=== PATIENT | female | born 1975 | race Caucasian/White ===

== ENCOUNTER 2021-04-20 11:10 | Outpatient (REF) | payer OTHER, SELFPAY ==
[2021-04-20 14:21] LABS: Vitamin B12 160 pg/mL (200-900)
[2021-04-20 14:30] LABS: Free T4 (Free Thyroxine) < 0.40 ng/dL (0.71-1.85); Vitamin D 25-OH Total 8.7 ng/mL (>30)
[2021-04-21 13:27] LABS: Calcium (PTHI) 9.2 mg/dL (8.6-10.2); PTHI 177 pg/mL (14-64)
== END 2021-04-20 11:11 | disposition home or self-care (01) ==
LOC: HO.10HDL 11:10
PROVIDERS: PCP Internal Medicine; Visit Provider Internal Medicine Endocrinology, Diabetes & Metabolism
DX: E89.0 Postprocedural hypothyroidism (principal); E21.1 Secondary hyperparathyroidism, not elsewhere classified; E53.8 Deficiency of other specified B group vitamins
CPT/HCPCS: 36415; 82306; 82607; 83970; 84439; 84443; 99212

== ENCOUNTER → 2022-01-23 13:51 | Outpatient (BNVA) | payer SELFPAY | PROVIDERS: PCP Internal Medicine; Visit Provider Physician Assistant Medical ==

== ENCOUNTER 2022-02-26 13:00 | Emergency (ER) | payer OTHER, SELFPAY ==
--- NOTE | ~2022-02-26 | XR_ITS ---
EXAMINATION: PORTABLE CHEST 1 VIEW CLINICAL INFORMATION: cough . COMPARISON: 04/22/2020. TECHNIQUE: Portable frontal view of the chest was obtained. FINDINGS: Lungs are hypoexpanded with asymmetric elevation of the right hemidiaphragm again noted. No focal infiltrate, effusion, edema, or pneumothorax. Cardiac and mediastinal silhouettes within normal limits for size. No focal airspace disease. XR/XR chest 1V IMPRESSION: Hypoexpanded but no acute process seen otherwise.
[2022-02-26 13:16] VITALS: BP 120/78; PULSE 116; RESP 18; TEMP 37; O2SAT 98; BMI 52.9
--- NOTE | 2022-02-26 13:34 | ED_ITS ---
HPI - General Adult General Chief complaint: Upper Respiratory Symptoms Stated complaint: Covid+/Vomiting, fever Time Seen by Provider: 02/26/22 13:19 Source: patient Mode of arrival: ambulatory Limitations: no limitations History of Present Illness HPI narrative: Patient comes emergency room complaining of COVID/flu like symptoms. Patient states she has been having cough, vomiting, cough. Patient states she tested positive for COVID yesterday at home, patient would like to be retested to make sure it is COVID. Patient states that she has been very nauseous, patient has a migraine but has not taken her medications for migraine because she is afraid that she will vomit and ran out of her medications with no relief. Patient denies chest pain, no shortness of breath, no calf pain. Related Data Previous Rx's Medication Instructions Recorded Tirosint 137 mcg capsule 137 mcg PO DAILY 30 Days #30 cap NS 04/20/21 (levothyroxine) cholecalciferol (vitamin D3) 50 50 mcg PO DAILY 30 Days #30 cap 04/20/21 mcg (2,000 unit) capsule cyanocobalamin (vitamin B-12) 500 500 mcg SUBLINGUAL DAILY 30 Days 04/20/21 mcg sublingual tablet #30 tab tizanidine 4 mg tablet 4 mg PO TID PRN #90 tab 05/19/21 ketorolac 10 mg tablet 10 mg PO QID PRN 5 Days #10 tab 02/26/22 metoclopramide HCl 5 mg tablet 5 mg PO DAILY PRN #10 tab 02/26/22 (Reglan) Allergies Allergy/AdvReac Type Severity Reaction Status Date / Time No Known Allergies Allergy Verified 04/20/21 11:28 Kiwi Allergy Unknown Unknown Uncoded 04/20/21 11:28 Shellfish Allergy Unknown Unknown Uncoded 04/20/21 11:28 Review of Systems Review of Systems: Constitutional : No Weight loss, No Fever, No Chills, No Night Sweats, complaining of fatigue and generalized malaise ENT/Mouth : No Hearing loss, No Ear Pain, no nasal congestion, no hoarseness, no sore throat Eyes: No Eye Pain, No Swelling, No Redness, No Foreign Body, No Discharge, No Vision Changes Cardiovascular : No Chest Pain, No SOB, No Dyspnea on Exertion, No Orthopnea, No Edema, No Palpitations Respiratory : No Cough, No Sputum, No Wheezing, No Smoke Exposure, No Dyspnea Gastrointestinal : Complaining of nausea and vomiting No Diarrhea, No Constipation, No abdominal Pain, No Hematochezia, No Melena Genitourinary : no irregular bleeding, No Dysuria, No Urinary Frequency, No Hematuria, No Urinary Incontinence, No Urgency, No Flank Pain, No Urinary Flow Changes, No Hesitancy Musculoskeletal : No joint pain, No Myalgias, No Joint Swelling Skin : No Skin Lesions, No rash Neuro : No Weakness, No Numbness, No Paresthesias, No Loss of Consciousness, No Dizziness, complaining of Headache Psych : No Anxiety/Panic, No Depression, No SI/HI/AH/VH, No Social Issues, Heme/Lymph: No Bruising, No Bleeding,No Lymphadenopathy Endocrine : No Polyuria, No Polydipsia, No Temperature Intolerance [facility] Past Medical History Medical History B12 deficiency Hyperparathyroidism due to vitamin D deficiency Hypothyroidism Surgical History History of incision and drainage Family History Family History (Updated 04/20/21 @ 11:15 by LOLITA Guerra) Father Glaucoma Diabetes Arthritis of knee Mother Anemia Osteoarthritis History of Laura-en-Y gastric bypass Social History Social History (Updated 04/20/21 @ 11:20 by LOLITA Guerra) Patient Tobacco Use Status: Never used Tobacco Use of substances other than those prescribed or required for medical reasons: No Advance Directives: No Advance Directives Information Provided: No Patient : No Physical Exam ED Vital Signs: Vital Signs - 24 hr 02/26/22 13:16 02/26/22 14:05 Temperature 98.6 F Pulse Rate 116 H 108 H Respiratory Rate 18 20 Blood Pressure 120/78 Pulse Oximetry 98 97 BMI result Body Mass Index 52.9 Const Other: Appearance: Alert. Oriented X3. No acute distress. Eyes: Pupils equal, round and reactive to light. ENT: Pharynx normal. Neck: Normal inspection. Neck supple. No lymph nodes noted. No crepitus CVS: Normal heart rate and rhythm. Pulses normal. Normal S1 and S2 Respiratory: No respiratory distress. Breath sounds normal. No Wheezing. No rales Abdomen: Soft and nontender. No rigidity. No distention. Skin: Skin warm and dry. Normal skin color. Normal skin turgor. Extremities: No lower extremity edema. No Lacerations. No Rash Neuro: Oriented X 3. No motor deficit. No sensory deficit. Moving all extremities. No slurred speech. CN 2 through 12 grossly intact Psych: calm, cooperative, normal affect Course Course Course Narrative: COVID test pending. Patient received p.o. Zofran and 1 dose of IM Toradol for symptomatic relief I discussed with the patient that she tested negative for COVID-19, however it may be a false negative. Patient will get retested in 2 days. Patient was given 1 dose of p.o. sumatriptan as well prior to discharge. Otherwise, patient is well-appearing, feeling overall better. Medical Decision Making Lab Data Labs: Lab Results 02/26/22 Range/Units 14:13 COVID-19 (ERIC) Negative (Negative) COVID-19 Clin Com See Note Discharge Plan Discharge Clinical Impression: Acute viral syndrome, Migraine Patient Disposition: Home, Self-Care Instructions: Migraine Headache (ED), Viral Syndrome (ED) Additional Instructions: Please follow-up with your primary care physician tomorrow. If you have any worsening or new symptoms, please return to the emergency room or call 911 Prescriptions: New ketorolac 10 mg tablet 10 mg PO QID PRN (Reason: pain) 5 Days Qty: 10 0RF Rx Instructions: Do not use naproxen or any NSAIDs, only Tylenol if needed metoclopramide HCl [Reglan] 5 mg tablet 5 mg PO DAILY PRN (Reason: nausea and vomiting) Qty: 10 0RF No Action tizanidine 4 mg tablet 4 mg PO TID PRN (Reason: for low back pain) Qty: 90 1RF levothyroxine [Tirosint] 137 mcg capsule 137 mcg PO DAILY 30 Days Qty: 30 6RF Rx Instructions: Brand medically necessary. Do not substitute. Dispense as written. cyanocobalamin (vitamin B-12) 500 mcg tablet, sublingual 500 mcg sublingual DAILY 30 Days Qty: 30 6RF cholecalciferol (vitamin D3) 50 mcg (2,000 unit) capsule 50 mcg PO DAILY 30 Days Qty: 30 6RF
[2022-02-26] MEDS: Ondansetron ODT 4 MG TAB.RAPDIS TRANSLINGU (14:02)
[2022-02-26] MEDS: Ketorolac Tromethamine 60 MG/2 ML VIAL IM (14:02)
[2022-02-26 14:05] VITALS: PULSE 108; RESP 20; O2SAT 97; O2SAT 98
[2022-02-26 14:35] LABS: COVID-19 Test Negative (Negative)
[2022-02-26] MEDS: SUMAtriptan succinate 50 MG TABLET PO (15:43)
[2022-02-26 16:08] VITALS: BP 112/77; PULSE 109; RESP 18; TEMP 37.3; O2SAT 96
== END 2022-02-26 16:21 | disposition home or self-care (01) ==
PROVIDERS: Emergency Provider Emergency Medicine; PCP Internal Medicine
DX: B34.9 Viral infection, unspecified (principal); G43.909 Migraine, unspecified, not intractable, without status migrainosus; R05.9 Cough, unspecified; Z20.822 Contact with and (suspected) exposure to COVID-19; Z79.899 Other long term (current) drug therapy
CPT/HCPCS: 71045; 87635; 96372; 99284; 99285; J1885

== ENCOUNTER 2022-06-06 11:27 | Emergency (ER) | payer OTHER, SELFPAY | END 2022-06-06 13:06 | disposition left against medical advice (07) | PROVIDERS: Emergency Provider Emergency Medicine; PCP Internal Medicine | DX: S89.91XA Unspecified injury of right lower leg, initial encounter (principal); X58.XXXA Exposure to other specified factors, initial encounter; Y93.9 Activity, unspecified; Y92.9 Unspecified place or not applicable; Y99.9 Unspecified external cause status ==

== ENCOUNTER → 2022-10-10 10:35 | Outpatient (BNVA) | payer OTHER, SELFPAY | PROVIDERS: PCP Internal Medicine; Visit Provider Internal Medicine Endocrinology, Diabetes & Metabolism | DX: E89.0 Postprocedural hypothyroidism (principal); E21.1 Secondary hyperparathyroidism, not elsewhere classified | CPT/HCPCS: 99212 ==

== ENCOUNTER 2023-01-10 18:19 | Outpatient (REF) | payer OTHER, SELFPAY ==
[2023-01-10 19:04] LABS: Influenza A PCR NEGATIVE (Negative); Influenza B PCR NEGATIVE (Negative); Resp Syncy Virus RNA Qual PCR NEGATIVE (Negative); SARS COV2 PCR INHOUSE POSITIVE (Negative)
== END 2023-01-10 18:20 | disposition home or self-care (01) ==
LOC: HO.LNP 18:19
PROVIDERS: Visit Provider Nurse Practitioner Family
DX: R09.89 Other specified symptoms and signs involving the circulatory and respiratory systems (principal); Z20.822 Contact with and (suspected) exposure to COVID-19
CPT/HCPCS: 0241U

== ENCOUNTER 2023-06-15 07:57 | Outpatient (AMB) | payer OTHER, SELFPAY ==
[2023-06-15 08:04] VITALS: BP 114/68; PULSE 97; O2SAT 99; BMI 51.9
--- NOTE | 2023-06-15 08:04 | MHC.PC.OV ---
Vital Signs 06/15/23 08:04 Height 5 ft 5 in Weight 312 lb BMI 51.9 BP 114/68 Blood Pressure Location Lt brachial Position Sitting Pulse 97 Pulse Source Pulse Oximeter Pulse Oximetry (%) 99 Oxygen Delivery Method Room Air Intake Visit Reasons: gallbladder surgery Allergies Kiwi Allergy (Unknown, Uncoded 06/15/23 08:07) Unknown Shellfish Allergy (Unknown, Uncoded 06/15/23 08:07) Unknown Tobacco use date assessed: 06/15/23 Dental Screening Dental Screen Date: 06/15/23 Did you have a dental visit in the last 12 months?: Yes Did you have a dental problem in the last 6 months where you did not have access to dental care?: No Was dental information given to patient?: Patient has dentist HPI HPI Comments History of Present Illness Details 48-year-old female past medical history significant for hypothyroidism, B12 deficiency and headaches. Patient of Dr. Lockett patient presents today for a hospital discharge follow-up 2 days upper abdominal pain went to [facility]. Patient states had pancreatitis and was admitted x 1 week then underwent cholecystectomy completed on 05/17/23. Unfortunately records of her admission were unavailable at time of her appointment. Records to be requested.Patient followed up with [facility] General surgery on 06/05. Patient states feels like ball by epigastric incision and hurts with movement or if she does anything strenous, patient does report she did notify surgeon of this however she was told to follow-up with her PCP. Palpable lump felt that epigastric incision, patient reports tender on palpation. Will order abdominal CT to rule out ventral hernia. [facility] Medical History B12 deficiency Hyperparathyroidism due to vitamin D deficiency Hypothyroidism Surgical History History of incision and drainage Family History (Updated 06/15/23 @ 08:05 by Toshia Torres CMA) Father Glaucoma Diabetes Arthritis of knee Mother Anemia Osteoarthritis History of Laura-en-Y gastric bypass Social History (Updated 10/10/22 @ 10:46 by ROSE Son) Household Members: Children Household Members Other:: daughter Housing: Apartment Alcohol intake: never Patient Tobacco Use Status: Never used Tobacco e-Cigarette/Vaping Use: Never Used Second Hand Smoke Exposure: No service: No Current occupational status: employed Current occupational exposures/hazards: No Cognitive needs: No Hearing needs: No Vision needs: Yes Questionnaire PHQ-9 Over the last 2 weeks, how often have you been bothered by any of the following problems? 1. Little interest or pleasure in doing things: more than half the days 2. Feeling down, depressed, or hopeless: more than half the days 3. Trouble falling or staying asleep, or sleeping too much: more than half the days 4. Feeling tired or having little energy: more than half the days 5. Poor appetite or overeating: several days 6. Feeling bad about yourself - or that you are a failure or have let yourself or your family down: not at all 7. Trouble concentrating on things, such as reading the newspaper or watching television: not at all 8. Moving or speaking so slowly that other people could have noticed. Or the opposite - being so fidgety or restless that you have been moving around a lot more than usual: not at all 9. Thoughts that you would be better off or of hurting yourself in some way: not at all Total score: 9 Depression Screening Interpretation: Positive Source: Developed by Drs. Narciso Gudino, Nadia Valle, Jarred Greene and colleagues, with an educational latia from [employer]. Thrive Questionnaire Date Thrive assessed: 06/15/23 I am a: Patient What is your living situation today?: I have a steady place to live Within the past 12 months, did the food you bought not last and you didn't have the money to get more?: Never true Within the past 12 months, did you worry whether your food would run out before you got money to buy more?: Never true Do you have trouble paying for medicines?: No Do you have trouble getting transportation to medical appointments?: No Do you have trouble paying your heating and electricity bill?: No Do you have trouble taking care of your child, family member or friend?: No Do you have trouble with day-to-day activities such as bathing, preparing meals, shopping, managing finances, etc.?: No Are you currently unemployed and looking for a job?: No Are you interested in more education?: No Currently or been in a relationship where the following occur: no concerns reported AUDIT C Alcohol Use Questionnaire (AUDIT-C) 1. How often do you have a drink containing alcohol?: Monthly or less 2. How many drinks containing alcohol do you have on a typical day when you are drinking?: 1 or 2 3. How often do you have six or more drinks on one occasion?: Never Total Score: 1 KAYLAH-7 AMB Questionnaire KAYLAH-7 Date KAYLAH - 7 assessed: 06/15/23 Feeling nervous, anxious, or on edge: 2 = More than half the days Not being able to stop or control worryin = More than half the days Worrying too much about different things: 2 = More than half the days Trouble relaxin = More than half the days Being so restless that it is hard to sit still: 0 = Not at all Becoming easily annoyed or irritable: 1 = Several days Feeling afraid as if something awful might happen: 2 = More than half the days Total KAYLAH-7 score (0-4 normal; 5-9 mild; 10-14 moderate; 15-21 severe): 11 Source: Developed by Drs. Narciso Gudino, Nadia Valle, Jarred Greene and colleagues, with an educational latia from [employer]. Review of Systems Const Denies chills, Denies fatigue, Denies fever(s) and Denies poor appetite Eyes Denies no additional complaints ENT Reports Normal hearing present Card Denies chest pain, Denies syncope, Denies rapid heart rate and Denies dyspnea Resp Denies cough and Denies dyspnea GI Denies change in stool character, Denies constipation, Denies diarrhea, Denies nausea and Denies vomiting Denies urinary frequency, Denies dysuria and Denies urinary urgency Neuro Reports Normal hearing present, Denies confusion and Denies syncope Psych Denies confusion Endo Denies fatigue Physical exam (Primary Care) Vital Signs: Last Vital Signs Pulse 97 06/15/23 08:04 BP 114/68 06/15/23 08:04 Pulse Ox 99 06/15/23 08:04 Oxygen Delivery Method Room Air 06/15/23 08:04 BMI result Body Mass Index 51.9 Tobacco/Smoking Status: Tobacco use Status Tobacco use date assessed 06/15/23 06/15/23 08:09 Patient Tobacco Use Status Never used Tobacco 06/15/23 08:09 e-Cigarette/Vaping Use Never Used 06/15/23 08:09 PHQ-9: PHQ-9 Score PHQ-9: Total score 9 06/15/23 08:11 Depression Screening Interpretation: Positive Thrive Assessment: Date of Thrive Assessment Date Thrive assessed 06/15/23 06/15/23 08:09 Currently or been in a relationship where the following occur: no concerns reported Const General: No confusion Orientation/consciousness: No confusion HENMT Head: Yes normocephalic and Yes atraumatic Eyes Conjunctivae: conjunctivae normal Chest Chest palpation & inspection: normal inspection of the chest Resp Effort & Inspection: normal respiratory effort Auscultation: clear to auscultation bilaterally, no crackles, no rhonchi and no wheezes Cardio Rate: regular rate Rhythm: regular rhythm Heart sounds: S1 normal heart sound present and S2 normal heart sound present GI Inspection: Yes normal to inspection Palpation (GI): Soft to palpation, nontender, No hepatosplenomegaly present and Hernia present ventral (Palpable lump to epigastric incision. ) Auscultation: normoactive bowel sounds Neuro General: No confusion Cranial nerves: Yes Normal hearing present Extrem General: No edema Assessment and Plan Assessment & Plan (1) Ventral hernia: Code(s): K43.9 - Ventral hernia without obstruction or gangrene Plan: Abdominal CT ordered to further evaluate for ventral hernia status post cholecystectomy. (2) Hypothyroidism: Code(s): E03.9 - Hypothyroidism, unspecified Qualifiers: Hypothyroidism type: postablative Qualified Code(s): E89.0 - Postprocedural hypothyroidism Plan: Continue on levothyroxine, refill sent on this medication Plan Follow-up in 6 months for physical exam or sooner if needed. Orders: Orders CT abdomen pelvis w IV con Today K43.9 - Ventral hernia without obstruction or gangrene Medications: Refilled Tirosint (levothyroxine) Brand medically necessary. Do not substitute. Dispense as written. 137 mcg PO DAILY 30 days 30 caps 6RF NS E89.0 - Postprocedural hypothyroidism cholecalciferol (vitamin D3) 50 mcg PO DAILY 30 days 30 caps 6RF E21.1 - Secondary hyperparathyroidism, not elsewhere classified tizanidine 4 mg PO TID PRN 90 tabs 0RF for low back pain Coding Level of Care Code Est Pt Level 3 (18262) Diagnoses Ventral hernia K43.9 Hypothyroidism E89.0 Hypothyroidism type: postablative
== END 2023-06-15 08:32 | disposition home or self-care (01) ==
PROVIDERS: PCP Internal Medicine; Visit Provider Nurse Practitioner Family
DX: K43.9 Ventral hernia without obstruction or gangrene (principal); E89.0 Postprocedural hypothyroidism
CPT/HCPCS: 99213

== ENCOUNTER 2023-08-16 10:40 | Outpatient (REF) | payer OTHER, SELFPAY ==
--- NOTE | ~2023-08-16 | MM_ITS ---
EXAMINATION: MM SCREENING DIGITAL BREAST TOMOSYNTHESIS, BILATERAL CLINICAL INFORMATION: Screening. Asymptomatic. COMPARISON: Mammography: This is a baseline study. TECHNIQUE: Digital breast tomosynthesis is performed in both the craniocaudal and mediolateral oblique views along with computer-aided detection (CAD). Synthesized 2D images are generated from the tomosynthesis. FINDINGS: The breasts are almost entirely fatty (ACR BI-RADS breast composition Category a). There are no significant masses, abnormal calcifications, or other abnormalities. MM/MM tomosynthesis screening BI IMPRESSION: No mammographic evidence of malignancy. ASSESSMENT: BI-RADS BI-RADS 1 - Negative RECOMMENDATION: Routine annual mammography screening. 1 year F/U This examination should not preclude the clinical evaluation of a suspicious palpable abnormality. This patient's information was entered into a reminder system with a target due date for their next mammogram.
== END 2023-08-16 10:41 | disposition home or self-care (01) ==
LOC: HO.MAMMO 10:40
PROVIDERS: PCP Physician Assistant; Visit Provider Physician Assistant
DX: Z12.31 Encounter for screening mammogram for malignant neoplasm of breast (principal)
CPT/HCPCS: 77063; 77067

== ENCOUNTER → 2023-08-16 10:45 | Outpatient (BNV) | payer OTHER, SELFPAY | PROVIDERS: PCP Physician Assistant; Visit Provider Radiology Diagnostic Radiology | DX: Z12.31 Encounter for screening mammogram for malignant neoplasm of breast (principal) | CPT/HCPCS: 77063; 77067 ==

== ENCOUNTER 2023-12-13 08:24 | Outpatient (AMB) | payer OTHER, SELFPAY ==
[2023-12-13 08:01] VITALS: BP 112/82; PULSE 85; O2SAT 97; BMI 53.4
--- NOTE | 2023-12-13 08:01 | MHC.PC.OV ---
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: No Accompanied by: Self / Same As Patient Allergies Kiwi Allergy (Unknown, Uncoded 12/13/23 08:11) Unknown Shellfish Allergy (Unknown, Uncoded 12/13/23 08:11) Unknown Medication List - Last Reconciled 12/13/23 by Michoacano Anderson PA-C cholecalciferol (vitamin D3) 50 mcg PO DAILY 30 days cyanocobalamin (vitamin B-12) 500 mcg sublingual DAILY 30 days Tirosint (levothyroxine) 137 mcg PO DAILY 30 days NS tizanidine 4 mg PO TID PRN Tobacco use date assessed: 12/13/23 Dental Screening Dental Screen Date: 12/13/23 Did you have a dental visit in the last 12 months?: No Did you have a dental problem in the last 6 months where you did not have access to dental care?: No Was dental information given to patient?: Patient has dentist HPI pe HPI Details Patient is a 48-year-old female here today for annual physical. This is the 1st time I am meeting this 48-year-old female with a past medical history significant for morbid obesity, hyperparathyroidism, hypothyroidism, B12 deficiency. She was seeing endocrinology in 2021 though has lost follow-up. Most recent TSH very elevated above 60. She does report having heart palpitations as of late, muscle cramps and numbness and tingling in her upper extremities. She does report also having edema in her lower extremities hands and periorbital regions as well. Will try to set her back up with endocrinology as she has signs and symptoms of hypothyroidism and hyperparathyroidism. .. Mammogram: Done in July 2023 BI-RADS 1 . BLOCKER HAND: Needs a BLOCKER HAND exam and Pap smear .. Colon cancer screening- willing to do colonoscopy Vaccines- up-to-date with COVID vaccine, needs tetanus, needs flu Laboratory Tests 04/20/21 12:38 TSH 67.00 H Free T4 < 0.40 L PTH Intact 177 H PFSH Medical History B12 deficiency Hyperparathyroidism due to vitamin D deficiency Hypothyroidism Surgical History History of incision and drainage Family History Father Glaucoma Diabetes Arthritis of knee Mother Anemia Osteoarthritis History of Laura-en-Y gastric bypass Social History (Updated 12/13/23 @ 08:18 by Michoacano Anderson PA-C) Household Members: Children Household Members Other:: daughter Housing: Apartment Alcohol intake: never Patient Tobacco Use Status: Never used Tobacco e-Cigarette/Vaping Use: Never Used Second Hand Smoke Exposure: No service: No Current occupational status: employed 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 1. Little interest or pleasure in doing things: several days 2. Feeling down, depressed, or hopeless: not at all 3. Trouble falling or staying asleep, or sleeping too much: more than half the days 4. Feeling tired or having little energy: nearly every day 5. Poor appetite or overeating: several days 6. Feeling bad about yourself - or that you are a failure or have let yourself or your family down: not at all 7. Trouble concentrating on things, such as reading the newspaper or watching television: not at all 8. Moving or speaking so slowly that other people could have noticed. Or the opposite - being so fidgety or restless that you have been moving around a lot more than usual: not at all 9. Thoughts that you would be better off or of hurting yourself in some way: not at all Total score: 7 Depression Screening Interpretation: Positive Depression Screening Follow-up: Existing condition and Follow-up Visit Requested Depression Screening Done: Yes 38316 - PHQ-9 Billing: Yes Source: Developed by Drs. Narciso Gudino, Nadia Valle, Jarred Greene and colleagues, with an educational latia from [employer]. Thrive Questionnaire Date Thrive assessed: 12/13/23 I am a: Patient What is your living situation today?: I have a steady place to live Within the past 12 months, did the food you bought not last and you didn't have the money to get more?: Never true Within the past 12 months, did you worry whether your food would run out before you got money to buy more?: Never true Do you have trouble paying for medicines?: No Do you have trouble getting transportation to medical appointments?: No Do you have trouble paying your heating and electricity bill?: No Do you have trouble taking care of your child, family member or friend?: No Do you have trouble with day-to-day activities such as bathing, preparing meals, shopping, managing finances, etc.?: No Are you currently unemployed and looking for a job?: No Are you interested in more education?: No Please select the resources that you would like help with: None Currently or been in a relationship where the following occur: no concerns reported THRIVE Score: 0 AUDIT C Alcohol Use Questionnaire (AUDIT-C) 1. How often do you have a drink containing alcohol?: Monthly or less 2. How many drinks containing alcohol do you have on a typical day when you are drinking?: 1 or 2 3. How often do you have six or more drinks on one occasion?: Never Total Score: 1 KAYLAH-7 AMB Questionnaire KAYLAH-7 Date KAYLAH - 7 assessed: 12/13/23 Feeling nervous, anxious, or on edge: 2 = More than half the days Not being able to stop or control worryin = Several days Worrying too much about different things: 2 = More than half the days Trouble relaxin = More than half the days Being so restless that it is hard to sit still: 1 = Several days Becoming easily annoyed or irritable: 3 = Nearly every day Feeling afraid as if something awful might happen: 1 = Several days Total KAYLAH-7 score (0-4 normal; 5-9 mild; 10-14 moderate; 15-21 severe): 12 Source: Developed by Drs. Narciso Gudino, Nadia Valle, Jarred Greene and colleagues, with an educational latia from [employer] KAYLAH-7 Assessment Billing KAYLAH-7 Assessment Tool: KAYLAH-7 Assessment 38640 Review of Systems Const Denies body aches, Denies chills, Denies excessive sweating, Denies fatigue, Denies fever(s) and Denies headache(s) Eyes Denies blurry vision ENT Denies dysphagia, Denies vertigo, Denies dizziness, Denies headache(s), Denies hearing loss and Denies tinnitus Card Details: + palpitations Denies chest pain, Denies chest pain with activity, Denies syncope, Denies irregular heart rhythm and Denies dyspnea Resp Denies chest congestion, Denies cough, Denies hemoptysis, Denies dyspnea and Denies wheezing GI Denies abdominal pain, Denies melena, Denies hematochezia, Denies coffee ground emesis, Denies dysphagia, Denies diarrhea, Denies nausea and Denies vomiting Denies urinary frequency, Denies dysuria, Denies urinary hesitancy and Denies urinary urgency Musc Denies arthralgias, Denies limited range of motion, Denies muscle cramps and Denies muscle weakness Skin/Breast Denies rash and Denies skin ulcer Neuro Denies Abnormal speech present, Denies confusion, Denies vertigo, Denies dizziness, Denies syncope, Denies headache(s), Denies memory loss and Denies seizure-like activity Psych Denies anxiety, Denies confusion, Denies depression, Denies memory loss, Denies panic attacks and Denies paranoia Endo Denies excessive sweating, Denies fatigue, Denies flushing, Denies polydipsia and Denies polyuria Aller/Immun Denies wheezing Physical exam (Primary Care) Vital Signs: Last Vital Signs Pulse 85 12/13/23 08:01 BP 112/82 12/13/23 08:01 Pulse Ox 97 12/13/23 08:01 Oxygen Delivery Method Room Air 12/13/23 08:01 BMI result Body Mass Index 53.4 BMI Assessment/Plan discussion: High Tobacco/Smoking Status: Tobacco use Status Tobacco use date assessed 12/13/23 12/13/23 08:10 Patient Tobacco Use Status Never used Tobacco 12/13/23 08:18 e-Cigarette/Vaping Use Never Used 12/13/23 08:18 PHQ-9: PHQ-9 Score PHQ-9: Total score 7 12/13/23 13:17 Depression Screening Interpretation: Positive Depression Screening Follow-up: Existing condition and Follow-up Visit Requested Thrive Assessment: Date of Thrive Assessment Date Thrive assessed 12/13/23 12/13/23 08:10 Currently or been in a relationship where the following occur: no concerns reported Const Other: Morbidly obese General: cooperative, comfortable, no acute distress, alert and awake; No confusion Orientation/consciousness: oriented to person, oriented to place, patient oriented x3 and No confusion HENMT Head: Yes normocephalic Ears: external ears normal and TM's normal bilaterally Face and sinus: No sinus tenderness Mouth: Normal oral and palatal mucosa present and tongue normal Teeth and gingiva: dentition normal and gingiva normal Throat: Yes posterior oropharynx normal, Yes tonsils normal and Yes uvula midline Eyes Conjunctivae: conjunctivae normal Sclerae: sclerae normal Pupils: Equal, round and reactive pupils present EOM: EOMs intact bilaterally Direct Ophthalmoscopy: No no photophobia Neck Neck: Yes no lymphadenopathy, No tender and Yes no JVD Thyroid: Thyroid normal Carotids: no bruits Chest Chest palpation & inspection: no tenderness Resp Effort & Inspection: normal respiratory effort, no audible wheezes, not labored and no stridor Auscultation: no crackles, no rales, no rhonchi and no wheezes Cardio Jugular venous distension: no JVD Rate: regular rate, not bradycardic and not tachycardic Rhythm: regular rhythm Bruits: no carotid bruits Peripheral pulses: Peripheral pulses 2+ throughout GI Inspection: Yes normal to inspection, No abdominal wall ecchymosis and No visible herniation Palpation (GI): Soft to palpation, nontender, no guarding, not rigid and No hepatosplenomegaly present Auscultation: normoactive bowel sounds General: Yes no CVA tenderness Back/Spine/Pelvis Back: no CVA tenderness and No back tenderness Cervical Spine: cervical ROM normal Thoracic/Lumbar Spine: thoracic and lumbar spine normal to inspection, straight leg raise negative bilaterally, No thoraco-lumbar ROM limited and No lumbar spinal tenderness Skin Lesions: no lesions Rashes: no rashes Wounds: no wounds Neuro General: oriented to person, oriented to place, patient oriented x3, CN's II-XI intact bilaterally and No confusion Cranial nerves: Yes Equal, round and reactive pupils present and Yes Normal accommodation reflex present Cognition (Neuro): normal cognition Speech: No Abnormal speech present Gait exam (Neuro): Normal gait present Motor exam (neuro): 5/5 motor strength present throughout Extrem Right upper extremity: full ROM; no cyanosis Left upper extremity: full ROM; no cyanosis Right lower extremity: no edema Left lower extremity: no edema Psych Appearance: grossly normal Mental Status: mental status grossly normal Affect: normal affect Attitude: cooperative Thought process: Normal thought process present Office Procedures Flu Questionnaire Does the patient have a severe egg allergy?: No Does the patient have severe life threatening allergies?: No Does the patient have a fever or illness today?: No Has the patient ever had Guillain-Velarde Syndrome?: No Has the patient ever had any past reaction to a flu shot?: No Immunizations flu vacc [id number] 6mos up(PF) 60 mcg(15 mcgx4)/0.5 mL IM syringe Performing Provider: Michoacano Anderson PA-C Performing Location: [facility] Administered by: ROSE Harrell on 12/13/23 08:57 Dose Route Admin Location Dispensed Lot Number Expiration Date [place] Clinical Case Manager 0.5 mL IM Right Deltoid 0.5 mL [id number] 05/18/24 06098-709-68 [employer] VIS Given Date VIS Provided VIS Publication Date 12/13/23 Single Vaccine 21 Eligibility Eligibility Date Funding Source Not VFC Eligible 12/13/23 Private Boostrix Tdap 2.5 Lf unit-8 mcg-5 Lf/0.5 mL intramuscular syringe Performing Provider: Michoacano Anderson PA-C Performing Location: [facility] Administered by: ROSE Harrell on 12/13/23 08:57 Dose Route Admin Location Dispensed Lot Number Expiration Date [facility] Clinical Case Manager 0.5 mL IM Left Deltoid 0.5 mL [id number] 10/24/25 [id number] [employer] VIS Given Date VIS Provided VIS Publication Date 12/13/23 Single Vaccine 21 Eligibility Eligibility Date Funding Source Not VFC Eligible 12/13/23 Private Assessment and Plan Assessment & Plan (1) Annual physical exam: Code(s): Z00.00 - Encounter for general adult medical examination without abnormal findings (2) Hyperparathyroidism due to vitamin D deficiency: Code(s): E21.1 - Secondary hyperparathyroidism, not elsewhere classified Plan: Patient has a history of hyperparathyroidism and hypothyroidism. Would recheck her parathyroid hormone and calcium as she has been having muscle cramping her legs and edema. (3) Hypothyroidism: Code(s): E03.9 - Hypothyroidism, unspecified Qualifiers: Hypothyroidism type: postablative Qualified Code(s): E89.0 - Postprocedural hypothyroidism Plan: Patient has not been on levothyroxine for many months. Does have signs and symptoms concerning for low functioning thyroid. Will restart levothyroxine and retest TSH. (4) Morbid obesity with BMI of 50.0-59.9, adult: Code(s): E66.01 - Morbid (severe) obesity due to excess calories; Z68.43 - Body mass index [BMI] 50.0-59.9, adult Plan: Patient does understand BMI is well over 50 and will try to work on being more physically active and adapt to better eating habits. (5) Heart palpitations: Code(s): R00.2 - Palpitations Plan: Reports having intermittent episodes of heart palpitations. Physical exam today with regular rate and rhythm on auscultation. Patient's palpitations likely related to thyroid disease. Will consider Holter monitor and cardiology evaluation (6) Cervical cancer screening: Code(s): Z12.4 - Encounter for screening for malignant neoplasm of cervix Plan: Needs Pap smear (7) Screening for diabetes mellitus (DM): Code(s): Z13.1 - Encounter for screening for diabetes mellitus (8) Colon cancer screening: Code(s): Z12.11 - Encounter for screening for malignant neoplasm of colon Plan: Would like to do colonoscopy (9) B12 deficiency: Code(s): E53.8 - Deficiency of other specified B group vitamins (10) MDD (major depressive disorder), recurrent episode, moderate: Code(s): F33.1 - Major depressive disorder, recurrent, moderate Plan: Patient's PHQ-9 score positive for depression which has been existing condition for her. She is not interested in starting medication or mental health therapy at this time. (11) KAYLAH (generalized anxiety disorder): Code(s): F41.1 - Generalized anxiety disorder Plan: Patient's KAYLAH-7 score positive for anxiety which has been existing condition for her. She has not interested in starting any mental health medication or mental health therapy. Orders: Orders TSH reflex Free T4 12/13/23 E89.0 - Postprocedural hypothyroidism Vitamin D 25-OH Total 12/13/23 E21.1 - Secondary hyperparathyroidism, not elsewhere classified Intrinsic Factor Antibodies 12/13/23 E53.8 - Deficiency of other specified B group vitamins Parietal Cell Antibody 12/13/23 E53.8 - Deficiency of other specified B group vitamins Parathyroid Hormone Intact 12/13/23 E21.1 - Secondary hyperparathyroidism, not elsewhere classified Vitamin B12 and Folate 12/13/23 E53.8 - Deficiency of other specified B group vitamins ECG 3 day holter monitor 12/13/23 R00.2 - Palpitations TDaP Immunization 12/13/23 E53.8 - Deficiency of other specified B group vitamins, Z23 - Encounter for immunization Comprehensive [place]. Panel Fast 12/13/23 Z13.1 - Encounter for screening for diabetes mellitus Influenza [id number] Immunization 12/13/23 Z23 - Encounter for immunization Referrals Gastroenterology Referral Z12.11 - Encounter for screening for malignant neoplasm of colon CLUTCH OPERATOR Referral Z12.4 - Encounter for screening for malignant neoplasm of cervix Endocrinology Referral E21.1 - Secondary hyperparathyroidism, not elsewhere classified, E03.9 - Hypothyroidism, unspecified Medications: Refilled Tirosint (levothyroxine) Brand medically necessary. Do not substitute. Dispense as written. 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
== END 2023-12-13 08:56 | disposition home or self-care (01) ==
PROVIDERS: PCP Physician Assistant; Visit Provider Physician Assistant
DX: E53.8 Deficiency of other specified B group vitamins (principal); Z23 Encounter for immunization
CPT/HCPCS: 90471; 90472; 90686; 90715; 99396

== ENCOUNTER 2024-02-01 10:05 | Outpatient (AMB) | payer OTHER, SELFPAY ==
--- NOTE | 2024-02-01 10:25 | MHC.OFFWIV ---
Intake Vital Signs 02/01/24 10:26 Weight 317 lb BP 110/70 Blood Pressure Location Rt brachial Position Sitting Pulse 101 H Pulse Source Pulse Oximeter Pulse Oximetry (%) 96 Oxygen Delivery Method Room Air Intake Visit Reasons: EP Migraine/[place] [facility] Intake Note: Patient here for migraine that has been present for about 2 days w/nausea and vomiting and also has red slightly red right eye. Patient Tobacco Use Status: Never used Tobacco Allergies Kiwi Allergy (Unknown, Uncoded 02/01/24 10:27) Unknown Shellfish Allergy (Unknown, Uncoded 02/01/24 10:27) Unknown Do you need a note to return to daycare/school/sports/work: Yes HPI HPI Comments History of Present Illness Details 48 y/o female patient who presents to walk in clinic with c/o chronic migraine headaches associated with light and sound sensitivity, nausea and vomiting x 2 days now. [facility] Medical History B12 deficiency Hyperparathyroidism due to vitamin D deficiency Hypothyroidism Surgical History History of incision and drainage Family History Father Glaucoma Diabetes Arthritis of knee Mother Anemia Osteoarthritis History of [place]-en-Y gastric bypass Social History (Updated 12/13/23 @ 08:18 by Michoacano Anderson PA-C) Household Members: Children Household Members Other:: daughter Housing: Apartment Alcohol intake: never Patient Tobacco Use Status: Never used Tobacco e-Cigarette/Vaping Use: Never Used Second Hand Smoke Exposure: No service: No Current occupational status: employed 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 Current occupational exposures/hazards: No Cognitive needs: No Hearing needs: No Vision needs: Yes Review of Systems Const All systems reviewed & are unremarkable except as noted in HPI and below Physical Exam Vital Signs: Last Vital Signs Pulse 101 H 02/01/24 10:26 BP 110/70 02/01/24 10:26 Pulse Ox 96 02/01/24 10:26 Oxygen Delivery Method Room Air 02/01/24 10:26 Const General: no acute distress; No comfortable Nutritional Appearance: obese Orientation/consciousness: patient oriented x3 HEENT Head: Yes normocephalic Ears: external ears normal and TM's normal bilaterally General nose exam: Normal nasal mucous membranes and turbinates present Mouth: moist mucous membranes Throat: Yes posterior oropharynx normal Eyes Eyelids: Yes eyelids normal Conjunctivae: conjunctivae normal Corneas: corneas normal Pupils: Equal, round and reactive pupils present EOM: EOMs intact bilaterally Resp Effort & Inspection: normal respiratory effort and able to speak in complete sentences Auscultation: clear to auscultation bilaterally, no crackles, no rales, no rhonchi and no wheezes Cardio Rate: regular rate Rhythm: regular rhythm Neuro General: patient oriented x3 Cranial nerves: Yes Equal, round and reactive pupils present Office Meds ketorolac 30 mg/mL (1 mL) injection solution Performing Provider: Melany Montalvo NP Performing Location: [facility] Administered by: Gia Higuera RN on 02/01/24 11:06 Dose Route Admin Location Dispensed Lot Number Expiration Date NDC Veterinary Surgery Technologist 30 mg IM right gluteal 1 mL [id number] 01/17/25 [id number] HOSP[employer]PFIZ[employer] Assessment & Plan Assessment & Plan (1) Headache: Code(s): R51.9 - Headache, unspecified Qualifiers: Headache chronicity pattern: chronic headache Headache type: unspecified Intractability: intractable Qualified Code(s): R51.9 - Headache, unspecified; G89.29 - Other chronic pain Plan: - Rest in quite dark room - Administered Ketorolac 30 mg in office - Imitrex - F/U with PCP Orders: Orders AMB Ketorolac Injection Today R51.9 - Headache, unspecified Medications: New sumatriptan succinate take 1 tab at onset of headache; if no relief may repeat 1 tab after at least 2 hrs; max = 4 tabs/24 hr PO 20 tabs 0RF G89.29 - Other chronic pain, R51.9 - Headache, unspecified Coding Level of Care Code Est Pt Level 3 (92055) Diagnoses Chronic intractable headache, unspecified headache type R51.9; G89.29 Headache chronicity pattern: chronic headache Headache type: unspecified Intractability: intractable Time Spent (min) 15
[2024-02-01 10:26] VITALS: BP 110/70; PULSE 101; O2SAT 96
== END 2024-02-01 14:23 | disposition home or self-care (01) ==
PROVIDERS: PCP Physician Assistant; Visit Provider Nurse Practitioner Family
DX: R51.9 Headache, unspecified (principal); G89.29 Other chronic pain
CPT/HCPCS: 96372; 99213; J1885

== ENCOUNTER 2024-04-23 16:20 | Outpatient (REF) | payer OTHER, SELFPAY ==
[2024-04-23 18:09] LABS: Alanine Aminotransferase 11 U/L (0-31); Albumin Level 4.4 g/dL (3.5-5.0); Alkaline Phosphatase 109 U/L (39-117); Anion Gap 16 (12-20); Aspartate Amino Transferase 20 U/L (5-31); Bilirubin Total 0.6 mg/dL (0.0-1.0); Blood Urea Nitrogen 12 mg/dL (9-16); Calcium 8.9 mg/dL (8.4-10.2); Carbon Dioxide 21 mmol/L (22-29); Chloride 109 mmol/L (96-108); Estimated Glomerular Filt Rate 37; Glucose Fasting 107 mg/dL (60-99); Potassium 3.7 mmol/L (3.3-5.1); Sodium 142 mmol/L (135-145); Total Protein 7.6 g/dL (6.5-8.0)
[2024-04-23 18:19] LABS: TSH reflex Free T4 43.07 uIU/mL (0.32-4.0)
[2024-04-23 18:20] LABS: Free T4 (Free Thyroxine) < 0.42 ng/dL (0.71-1.85); Thyroid Stimulating Hormone 45.33 uIU/mL (0.32-4.0); Vitamin D 25-OH Total 6.6 ng/mL (>30)
[2024-04-23 18:35] LABS: Folate 4.6 ng/mL (> or = 4.0); Vitamin B12 176 pg/mL (200-900)
[2024-04-24 05:29] LABS: Parathyroid Hormone Intact 542.4 pg/mL (8.7-77.1)
[2024-04-29 20:48] LABS: Intrinsic Factor Antibodies Negative (Negative)
[2024-05-01 12:13] LABS: Parietal Cell Antibody <=20.0 Unit (<=20.0)
== END 2024-04-23 16:21 | disposition home or self-care (01) ==
LOC: HO.LAB 16:20
PROVIDERS: PCP Physician Assistant; Visit Provider Internal Medicine Endocrinology, Diabetes & Metabolism
DX: E89.0 Postprocedural hypothyroidism (principal); E21.1 Secondary hyperparathyroidism, not elsewhere classified; E53.8 Deficiency of other specified B group vitamins; Z13.1 Encounter for screening for diabetes mellitus
CPT/HCPCS: 36415; 80053; 82306; 82607; 82746; 83516; 83970; 84439; 84443; 86340